=== PATIENT | male | born 1965 | race Two or more races ===

== ENCOUNTER 2018-06-16 13:04 | Emergency (ER) | payer SELFPAY ==
[~2018-06-16] VITALS: Ht 170.2 cm; Wt 86.7 kg
[2018-06-16] MEDS ORDERED: LIDOCAINE HCL 1% 20ML VIAL (Pyxis) INJ INFIL ONE (19:30)
[2018-06-16] MEDS ORDERED: TETANUS AND DIPHTHERIA TOX/PF 0.5ML SYR (ADULT) IM ONE (20:45)
[2018-06-16] MEDS ORDERED: TETANUS, DIPHTHERIA, PERTUSSIS VAC/PF 0.5ML (>7YR OLD) IM ONE (21:04)
[2018-06-16 21:20] VITALS: BP 141/100
== END 2018-06-16 21:20 | disposition home or self-care (01) ==
LOC: ER 13:04
DX: S61.313A Laceration without foreign body of left middle finger with damage to nail, initial encounter (principal); Z98.42 Cataract extraction status, left eye; Z98.41 Cataract extraction status, right eye; W22.8XXA Striking against or struck by other objects, initial encounter; Y93.89 Activity, other specified; Y92.018 Other place in single-family (private) house as the place of occurrence of the external cause
CPT/HCPCS: 12001; 73140; 90471; 90714; 90715; 99284

== ENCOUNTER 2018-06-18 10:40 | Emergency (ER) | payer SELFPAY ==
[~2018-06-18] VITALS: Ht 170.2 cm; Wt 86.0 kg
[2018-06-18 10:44] VITALS: BP 137/96
== END 2018-06-18 11:55 | disposition home or self-care (01) ==
LOC: ER 11:50
DX: Z48.00 Encounter for change or removal of nonsurgical wound dressing (principal)
CPT/HCPCS: 99283

== ENCOUNTER 2018-06-25 10:36 | Emergency (ER) | payer SELFPAY ==
[~2018-06-25] VITALS: Ht 170.2 cm; Wt 87.5 kg
[2018-06-25 11:04] VITALS: BP 131/88
== END 2018-06-25 11:40 | disposition home or self-care (01) ==
LOC: ER 10:36
DX: S61.213D Laceration without foreign body of left middle finger without damage to nail, subsequent encounter (principal); X58.XXXD Exposure to other specified factors, subsequent encounter
CPT/HCPCS: 99281